=== PATIENT | female | born 1975 | race African-American/Black ===

== ENCOUNTER 2019-04-18 15:58 | Emergency (ER) | payer SELFPAY | END 2019-04-18 16:54 | disposition home or self-care (01) | LOC: NAV ERS 15:58 | DX: S40.012A Contusion of left shoulder, initial encounter (principal); M79.645 Pain in left finger(s); G43.909 Migraine, unspecified, not intractable, without status migrainosus; Y04.0XXA Assault by unarmed brawl or fight, initial encounter | CPT/HCPCS: 99283 ==